=== PATIENT | female | born 1960 | race Two or more races ===

== ENCOUNTER → 2017-11-18 | Outpatient (CLI) | payer OTHER ==
[~2017-11-18] VITALS: Ht 152.4 cm; Wt 76.7 kg
[~2017-11-18] MED LIST: AMOX1TAB12 PO; ANTIVERT12.5 MG PO; BENADRYL25 MG PO; DERMOTIC20 ML OTIC; HYZAAR 50-12.51 EACH PO; HYZAAR 50/12.51 TAB; HYZAAR 50/12.51 TAB PO; MEDROL4 MG PO; OFLOXACIN5 ML OTIC; SWIM EAR DROPS30 ML OTIC; SYNTHROID100 MCG; SYNTHROID125 MCG; SYNTHROID88 MCG; TENORMIN25 MG; TENORMIN25 MG PO; TUSSI PRES-B L120 M1 PO; ULTRACET PO
== END | disposition home or self-care (01) ==
LOC: PPHC 13:13
DX: R19.7 Diarrhea, unspecified (principal)

== ENCOUNTER 2017-12-04 08:58 | Outpatient (CLI) | payer OTHER | END 2017-12-04 10:25 | disposition home or self-care (01) | LOC: LAB 08:58 | DX: D64.89 Other specified anemias (principal); E11.8 Type 2 diabetes mellitus with unspecified complications; E78.2 Mixed hyperlipidemia; I10 Essential (primary) hypertension; E03.8 Other specified hypothyroidism; E55.9 Vitamin D deficiency, unspecified; Z12.9 Encounter for screening for malignant neoplasm, site unspecified ==

== ENCOUNTER 2018-02-09 07:12 | Outpatient (CLI) | payer OTHER ==
[~2018-02-09] VITALS: Ht 152.4 cm; Wt 72.6 kg
== END 2018-02-09 07:30 | disposition home or self-care (01) ==
LOC: OFIC 805 07:12
DX: H61.21 Impacted cerumen, right ear (principal); J31.0 Chronic rhinitis; H60.61 Unspecified chronic otitis externa, right ear

== ENCOUNTER 2018-04-09 10:16 | Outpatient (CLI) | payer OTHER | END 2018-04-09 14:27 | disposition home or self-care (01) | LOC: LAB 10:16 | DX: C73 Malignant neoplasm of thyroid gland (principal); E89.0 Postprocedural hypothyroidism; E78.2 Mixed hyperlipidemia ==

== ENCOUNTER 2018-07-20 07:43 | Outpatient (CLI) | payer OTHER ==
[~2018-07-20] VITALS: Ht 152.4 cm; Wt 72.6 kg
== END 2018-07-20 08:00 | disposition home or self-care (01) ==
LOC: OFIC 805 07:43
DX: J31.0 Chronic rhinitis (principal); H60.8X3 Other otitis externa, bilateral; H61.23 Impacted cerumen, bilateral; L29.8 Other pruritus

== ENCOUNTER → 2018-09-01 06:07 | Outpatient (CLI) | payer OTHER | END | disposition home or self-care (01) | LOC: LAB 06:07 | DX: I10 Essential (primary) hypertension (principal); Z13.1 Encounter for screening for diabetes mellitus; Z12.11 Encounter for screening for malignant neoplasm of colon; E03.8 Other specified hypothyroidism ==

== ENCOUNTER 2018-09-01 10:56 | Outpatient (CLI) | payer OTHER | END 2018-09-01 11:01 | disposition home or self-care (01) | LOC: MAMO-SONO 10:56 | DX: Z12.31 Encounter for screening mammogram for malignant neoplasm of breast (principal) ==

== ENCOUNTER 2018-11-16 07:53 | Outpatient (CLI) | payer OTHER ==
[~2018-11-16] VITALS: Ht 152.4 cm; Wt 72.6 kg
== END 2018-11-16 08:15 | disposition home or self-care (01) ==
LOC: OFIC 805 07:53
DX: J31.0 Chronic rhinitis (principal); L29.8 Other pruritus; H60.8X2 Other otitis externa, left ear

== ENCOUNTER → 2019-01-28 08:42 | Outpatient (CLI) | payer OTHER | END | disposition home or self-care (01) | LOC: LAB 08:42 | DX: R42 Dizziness and giddiness (principal); E78.49 Other hyperlipidemia; Z00.00 Encounter for general adult medical examination without abnormal findings; Z11.3 Encounter for screening for infections with a predominantly sexual mode of transmission ==

== ENCOUNTER 2019-02-28 08:04 | Outpatient (CLI) | payer OTHER | END 2019-02-28 08:10 | disposition home or self-care (01) | LOC: SONOGRAMA 08:04 | DX: C73 Malignant neoplasm of thyroid gland (principal) ==

== ENCOUNTER 2019-03-31 16:50 | Outpatient (CLI) | payer OTHER | END 2019-03-31 17:00 | disposition home or self-care (01) | LOC: RAD 16:50 | DX: M54.89 Other dorsalgia (principal) ==

== ENCOUNTER → 2019-05-13 07:54 | Outpatient (CLI) | payer OTHER | END | disposition home or self-care (01) | LOC: LAB 07:54 | DX: D64.89 Other specified anemias (principal); E11.9 Type 2 diabetes mellitus without complications; E78.2 Mixed hyperlipidemia; I10 Essential (primary) hypertension; E03.8 Other specified hypothyroidism ==

== ENCOUNTER 2019-09-06 08:02 | Outpatient (CLI) | payer OTHER ==
[~2019-09-06] VITALS: Ht 152.4 cm; Wt 70.3 kg
[~2019-09-06 08:02] MED LIST changes: +ATENOLOL25 MG; +ATENOLOL25 MG PO; +CORTISPORIN EAR10 M2 OT; +SYNTHROID88 MCG PO
[2019-09-06] MEDS ORDERED: LIPO-FLAVONOID1 EACH PO (12:10)
== END 2019-09-06 08:20 | disposition home or self-care (01) ==
LOC: OFIC 805 08:02 → EDBD 10:00
DX: H60.63 Unspecified chronic otitis externa, bilateral (principal); J31.0 Chronic rhinitis; R42 Dizziness and giddiness

== ENCOUNTER 2019-09-27 09:03 | Outpatient (CLI) | payer OTHER ==
[~2019-09-27 09:03] MED LIST changes: +LIPO-FLAVONOID1 EACH PO
== END 2019-09-27 10:29 | disposition home or self-care (01) ==
LOC: MAMO-SONO 09:03
DX: Z12.31 Encounter for screening mammogram for malignant neoplasm of breast (principal); Z87.898 Personal history of other specified conditions; N64.4 Mastodynia

== ENCOUNTER 2019-09-29 07:37 | Outpatient (CLI) | payer OTHER | END 2019-09-29 15:00 | disposition home or self-care (01) | LOC: LAB 07:37 | DX: D64.89 Other specified anemias (principal); E11.9 Type 2 diabetes mellitus without complications; E78.2 Mixed hyperlipidemia; I10 Essential (primary) hypertension; E03.8 Other specified hypothyroidism ==

== ENCOUNTER 2019-12-05 11:47 | Outpatient (CLI) | payer OTHER ==
[~2019-12-05] VITALS: Ht 152.4 cm; Wt 68.9 kg
== END 2019-12-05 14:55 | disposition home or self-care (01) ==
LOC: OFIC 805 11:47
DX: H92.01 Otalgia, right ear (principal); S00.421A Blister (nonthermal) of right ear, initial encounter

== ENCOUNTER 2019-12-16 08:48 | Emergency (ER) | payer OTHER ==
[~2019-12-16] VITALS: Ht 162.6 cm; Wt 76.2 kg
== END 2019-12-16 10:14 | disposition home or self-care (01) ==
LOC: ER 08:48
DX: R05 Cough (principal)

== ENCOUNTER 2020-01-18 06:17 | Outpatient (CLI) | payer OTHER | END 2020-01-18 06:23 | disposition home or self-care (01) | LOC: LAB 06:17 | DX: E11.9 Type 2 diabetes mellitus without complications (principal); I10 Essential (primary) hypertension; E07.89 Other specified disorders of thyroid ==

== ENCOUNTER 2020-02-03 10:25 | Outpatient (CLI) | payer OTHER | END 2020-02-03 10:37 | disposition home or self-care (01) | LOC: LAB 10:25 | DX: M54.2 Cervicalgia (principal); E78.49 Other hyperlipidemia; E03.8 Other specified hypothyroidism; E55.9 Vitamin D deficiency, unspecified ==

== ENCOUNTER → 2020-03-29 07:23 | Outpatient (CLI) | payer OTHER ==
[~2020-03-29 07:23] MED LIST changes: +CORTISPORIN EAR10 M1 OPHT
== END | disposition home or self-care (01) ==
LOC: LAB 07:23
PROVIDERS: ATTEND Internal Medicine Sports Medicine
DX: E55.9 Vitamin D deficiency, unspecified (principal); E78.2 Mixed hyperlipidemia; E11.9 Type 2 diabetes mellitus without complications; D64.89 Other specified anemias; I10 Essential (primary) hypertension; E03.8 Other specified hypothyroidism

== ENCOUNTER 2020-04-09 10:26 | Outpatient (CLI) | payer OTHER ==
[~2020-04-09] VITALS: Ht 152.4 cm; Wt 70.3 kg
[~2020-04-09 10:26] MED LIST changes: -CORTISPORIN EAR10 M1 OPHT
[2020-04-09] MEDS ORDERED: CORTISPORIN EAR10 M1 OPHT (10:42)
== END 2020-04-09 10:59 | disposition home or self-care (01) ==
LOC: OFIC 805 10:26
PROVIDERS: ATTEND Otolaryngology
DX: H60.8X1 Other otitis externa, right ear (principal); H61.21 Impacted cerumen, right ear

== ENCOUNTER 2020-05-01 08:53 | Outpatient (CLI) | payer OTHER ==
[~2020-05-01 08:53] MED LIST changes: +CORTISPORIN EAR10 M1 OPHT
== END 2020-05-01 08:55 | disposition home or self-care (01) ==
LOC: SONOGRAMA 08:53
PROVIDERS: ATTEND Obstetrics & Gynecology Gynecology
DX: R10.2 Pelvic and perineal pain (principal)

== ENCOUNTER 2020-07-04 09:11 | Outpatient (CLI) | payer OTHER | END 2020-07-04 18:27 | disposition home or self-care (01) | LOC: OFIC 805 09:11 | PROVIDERS: ATTEND Otolaryngology | DX: H92.01 Otalgia, right ear (principal); H60.8X1 Other otitis externa, right ear ==

== ENCOUNTER 2020-07-11 06:07 | Emergency (ER) | payer OTHER ==
[~2020-07-11] VITALS: Ht 162.6 cm; Wt 71.2 kg
[2020-07-11] MEDS ORDERED: PROTONIX40 MG (06:23)
[2020-07-11] MEDS ORDERED: DIURETICO (06:24)
== END 2020-07-11 13:31 | disposition home or self-care (01) ==
LOC: ER 06:07
DX: R10.32 Left lower quadrant pain (principal); K62.5 Hemorrhage of anus and rectum

== ENCOUNTER 2020-07-19 13:00 | Outpatient (CLI) | payer OTHER ==
[~2020-07-19 13:00] MED LIST changes: +DIURETICO; +PROTONIX40 MG
== END 2020-07-19 15:00 | disposition home or self-care (01) ==
LOC: PPH VACUNA 13:00
DX: Z23 Encounter for immunization (principal)

== ENCOUNTER → 2020-08-20 06:25 | Outpatient (CLI) | payer OTHER | END | disposition home or self-care (01) | LOC: LAB 06:25 | PROVIDERS: ATTEND Internal Medicine Cardiovascular Disease | DX: M12.871 Other specific arthropathies, not elsewhere classified, right ankle and foot (principal); I10 Essential (primary) hypertension; E11.9 Type 2 diabetes mellitus without complications; E03.8 Other specified hypothyroidism; E78.2 Mixed hyperlipidemia; E55.9 Vitamin D deficiency, unspecified ==

== ENCOUNTER 2020-08-22 07:57 | Outpatient (CLI) | payer OTHER | END 2020-08-22 08:09 | disposition home or self-care (01) | LOC: NUCLEAR 07:57 | PROVIDERS: ATTEND Internal Medicine Cardiovascular Disease | DX: M81.0 Age-related osteoporosis without current pathological fracture (principal) ==

== ENCOUNTER → 2020-09-14 07:19 | Outpatient (CLI) | payer OTHER | END | disposition home or self-care (01) | LOC: LAB 07:19 | PROVIDERS: ATTEND Internal Medicine Sports Medicine | DX: D64.89 Other specified anemias (principal); E11.9 Type 2 diabetes mellitus without complications; E78.2 Mixed hyperlipidemia; E03.8 Other specified hypothyroidism; I10 Essential (primary) hypertension ==

== ENCOUNTER → 2020-10-10 | Outpatient (CLI) | payer OTHER | END | disposition home or self-care (01) | LOC: OFIC 805 08:45 | PROVIDERS: ATTEND Otolaryngology | DX: L30.8 Other specified dermatitis (principal); L29.8 Other pruritus ==

== ENCOUNTER 2020-10-15 10:17 | Outpatient (CLI) | payer OTHER | END 2020-10-15 11:00 | disposition home or self-care (01) | LOC: MAMO-SONO 10:17 | PROVIDERS: ATTEND Obstetrics & Gynecology Gynecology | DX: N60.02 Solitary cyst of left breast (principal); N60.11 Diffuse cystic mastopathy of right breast; N60.12 Diffuse cystic mastopathy of left breast ==

== ENCOUNTER → 2021-01-02 06:36 | Outpatient (CLI) | payer OTHER | END | disposition home or self-care (01) | LOC: LAB 06:36 | PROVIDERS: ATTEND Internal Medicine Sports Medicine | DX: D64.89 Other specified anemias (principal); E11.9 Type 2 diabetes mellitus without complications; E78.2 Mixed hyperlipidemia; I10 Essential (primary) hypertension; E03.8 Other specified hypothyroidism ==

== ENCOUNTER 2021-02-08 07:18 | Outpatient (CLI) | payer OTHER | END 2021-02-08 07:19 | disposition home or self-care (01) | LOC: EDBD 07:18 → LAB 07:18 | PROVIDERS: ATTEND Internal Medicine Sports Medicine | DX: C73 Malignant neoplasm of thyroid gland (principal); E89.0 Postprocedural hypothyroidism ==

== ENCOUNTER 2021-02-26 07:38 | Outpatient (CLI) | payer OTHER | END 2021-02-26 07:45 | disposition home or self-care (01) | LOC: SONOGRAMA 07:38 → EDBD 07:38 → SONOGRAMA 07:45 → MAMO-SONO 08:45 → EDBD 08:45 | PROVIDERS: ATTEND Internal Medicine Sports Medicine | DX: C73 Malignant neoplasm of thyroid gland (principal) ==

== ENCOUNTER → 2021-05-10 07:33 | Outpatient (CLI) | payer OTHER | END | disposition home or self-care (01) | LOC: LAB 07:33 | PROVIDERS: ATTEND Obstetrics & Gynecology Gynecology | DX: I10 Essential (primary) hypertension (principal); E78.49 Other hyperlipidemia; E03.8 Other specified hypothyroidism; M81.0 Age-related osteoporosis without current pathological fracture; N39.0 Urinary tract infection, site not specified ==

== ENCOUNTER → 2021-05-30 | Outpatient (CLI) | payer OTHER | END | disposition home or self-care (01) | LOC: LAB 07:16 | PROVIDERS: ATTEND Pediatrics | DX: Z03.818 Encounter for observation for suspected exposure to other biological agents ruled out (principal) ==

== ENCOUNTER 2021-06-25 13:20 | Outpatient (CLI) | payer OTHER | END 2021-06-25 13:25 | disposition home or self-care (01) | LOC: SONOGRAMA 13:20 | PROVIDERS: ATTEND Obstetrics & Gynecology Gynecology | DX: R10.2 Pelvic and perineal pain (principal) ==

== ENCOUNTER 2021-07-05 07:47 | Outpatient (CLI) | payer OTHER | END 2021-07-05 07:50 | disposition home or self-care (01) | LOC: LAB 07:47 | PROVIDERS: ATTEND Obstetrics & Gynecology Gynecology | DX: N39.0 Urinary tract infection, site not specified (principal); N91.5 Oligomenorrhea, unspecified ==

== ENCOUNTER 2021-07-12 06:13 | Outpatient (CLI) | payer OTHER | END 2021-07-12 06:14 | disposition home or self-care (01) | LOC: LAB 06:13 | PROVIDERS: ATTEND Internal Medicine Sports Medicine | DX: E89.0 Postprocedural hypothyroidism (principal); C73 Malignant neoplasm of thyroid gland ==

== ENCOUNTER 2021-08-05 08:00 | Outpatient (CLI) | payer OTHER | END 2021-08-05 08:30 | disposition home or self-care (01) | LOC: PPH VACUNA 08:00 | PROVIDERS: ATTEND Emergency Medicine Pediatric Emergency Medicine | DX: Z23 Encounter for immunization (principal) ==

== ENCOUNTER 2021-08-26 06:12 | Outpatient (CLI) | payer OTHER | END 2021-08-26 06:13 | disposition home or self-care (01) | LOC: LAB 06:12 | PROVIDERS: ATTEND Internal Medicine Cardiovascular Disease | DX: I10 Essential (primary) hypertension (principal); E11.9 Type 2 diabetes mellitus without complications; E03.8 Other specified hypothyroidism; E78.2 Mixed hyperlipidemia; E55.9 Vitamin D deficiency, unspecified ==

== ENCOUNTER 2021-10-09 08:00 | Outpatient (CLI) | payer OTHER | END 2021-10-09 08:30 | disposition home or self-care (01) | LOC: PPH VACUNA 08:00 | PROVIDERS: ATTEND Emergency Medicine Pediatric Emergency Medicine | DX: Z23 Encounter for immunization (principal) ==

== ENCOUNTER 2021-10-29 13:15 | Outpatient (CLI) | payer OTHER | END 2021-10-29 13:36 | disposition home or self-care (01) | LOC: MAMO-SONO 13:15 | DX: N63.21 Unspecified lump in the left breast, upper outer quadrant (principal); N63.12 Unspecified lump in the right breast, upper inner quadrant ==

== ENCOUNTER 2021-11-08 07:32 | Outpatient (CLI) | payer OTHER | END 2021-11-08 07:39 | disposition home or self-care (01) | LOC: LAB 07:32 → EDSTATUS 07:32 → LAB 07:39 | PROVIDERS: ATTEND Internal Medicine Sports Medicine | DX: C73 Malignant neoplasm of thyroid gland (principal); E89.0 Postprocedural hypothyroidism ==

== ENCOUNTER 2022-01-10 06:39 | Outpatient (CLI) | payer OTHER | END 2022-01-10 06:40 | disposition home or self-care (01) | LOC: LAB 06:39 | PROVIDERS: ATTEND Internal Medicine Cardiovascular Disease | DX: E03.9 Hypothyroidism, unspecified (principal); I10 Essential (primary) hypertension; E11.9 Type 2 diabetes mellitus without complications; E78.2 Mixed hyperlipidemia; E58 Dietary calcium deficiency ==

== ENCOUNTER 2022-01-12 08:08 | Outpatient (CLI) | payer OTHER | END 2022-01-12 08:13 | disposition home or self-care (01) | LOC: NUCLEAR 08:08 | PROVIDERS: ATTEND Internal Medicine | DX: R07.9 Chest pain, unspecified (principal) ==

== ENCOUNTER 2022-01-16 05:32 | Emergency (ER) | payer OTHER ==
[~2022-01-16] VITALS: Ht 162.6 cm; Wt 73.5 kg
[2022-01-16] MEDS ORDERED: CIPRO500 MG PO (11:59)
== END 2022-01-16 12:33 | disposition home or self-care (01) ==
LOC: ER 05:32
DX: N39.0 Urinary tract infection, site not specified (principal)

== ENCOUNTER 2022-01-23 07:09 | Outpatient (CLI) | payer OTHER ==
[~2022-01-23 07:09] MED LIST changes: +CIPRO500 MG PO
== END 2022-01-23 07:10 | disposition home or self-care (01) ==
LOC: LAB 07:09
PROVIDERS: ATTEND Internal Medicine
DX: D64.9 Anemia, unspecified (principal); N39.0 Urinary tract infection, site not specified; R10.9 Unspecified abdominal pain; E03.9 Hypothyroidism, unspecified; E78.5 Hyperlipidemia, unspecified; R73.09 Other abnormal glucose; I10 Essential (primary) hypertension

== ENCOUNTER 2022-01-27 06:08 | Outpatient (CLI) | payer OTHER | END 2022-01-27 06:09 | disposition home or self-care (01) | LOC: LAB 06:08 | PROVIDERS: ATTEND Internal Medicine | DX: R10.9 Unspecified abdominal pain (principal) ==

== ENCOUNTER → 2022-02-18 | Outpatient (CLI) | payer OTHER | END | disposition home or self-care (01) | LOC: SONOGRAMA 07:55 | PROVIDERS: ATTEND Internal Medicine Sports Medicine | DX: C73 Malignant neoplasm of thyroid gland (principal) ==

== ENCOUNTER 2022-04-11 07:13 | Outpatient (CLI) | payer OTHER | END 2022-04-11 07:18 | disposition home or self-care (01) | LOC: LAB 07:13 | PROVIDERS: ATTEND Internal Medicine Cardiovascular Disease | DX: E03.9 Hypothyroidism, unspecified (principal); I10 Essential (primary) hypertension; E11.9 Type 2 diabetes mellitus without complications; E78.2 Mixed hyperlipidemia ==

== ENCOUNTER 2022-04-18 10:44 | Outpatient (CLI) | payer OTHER | END 2022-04-18 10:45 | disposition home or self-care (01) | LOC: LAB 10:44 | PROVIDERS: ATTEND Specialist | DX: Z03.818 Encounter for observation for suspected exposure to other biological agents ruled out (principal) ==

== ENCOUNTER 2022-05-16 07:10 | Outpatient (CLI) | payer OTHER | END 2022-05-16 07:59 | disposition home or self-care (01) | LOC: LAB 07:10 | PROVIDERS: ATTEND Internal Medicine Cardiovascular Disease | DX: I10 Essential (primary) hypertension (principal); E11.9 Type 2 diabetes mellitus without complications; E03.9 Hypothyroidism, unspecified; E78.2 Mixed hyperlipidemia; E55.9 Vitamin D deficiency, unspecified ==

== ENCOUNTER 2022-07-15 14:00 | Outpatient (CLI) | payer OTHER | END 2022-07-15 14:05 | disposition home or self-care (01) | LOC: PPH VACUNA 14:00 | PROVIDERS: ATTEND Emergency Medicine Pediatric Emergency Medicine | DX: Z23 Encounter for immunization (principal) ==

== ENCOUNTER 2022-08-08 07:11 | Outpatient (CLI) | payer OTHER | END 2022-08-08 07:12 | disposition home or self-care (01) | LOC: LAB 07:11 | PROVIDERS: ATTEND Internal Medicine Sports Medicine | DX: D64.9 Anemia, unspecified (principal); E11.9 Type 2 diabetes mellitus without complications; E78.2 Mixed hyperlipidemia; E03.8 Other specified hypothyroidism; I10 Essential (primary) hypertension ==

== ENCOUNTER 2022-09-28 10:05 | Outpatient (CLI) | payer OTHER | END 2022-09-28 10:06 | disposition home or self-care (01) | LOC: LAB 10:05 | PROVIDERS: ATTEND Internal Medicine Cardiovascular Disease | DX: I10 Essential (primary) hypertension (principal); E11.9 Type 2 diabetes mellitus without complications; E03.9 Hypothyroidism, unspecified; E78.2 Mixed hyperlipidemia ==

== ENCOUNTER 2022-10-24 07:09 | Outpatient (CLI) | payer OTHER | END 2022-10-24 07:13 | disposition home or self-care (01) | LOC: LAB 07:09 | PROVIDERS: ATTEND Specialist | DX: N39.0 Urinary tract infection, site not specified (principal); R22.1 Localized swelling, mass and lump, neck; D50.9 Iron deficiency anemia, unspecified; E03.9 Hypothyroidism, unspecified ==

== ENCOUNTER 2022-10-30 08:24 | Outpatient (CLI) | payer OTHER | END 2022-10-30 08:35 | disposition home or self-care (01) | LOC: MAMO-SONO 08:24 | PROVIDERS: ATTEND Internal Medicine Cardiovascular Disease | DX: N63.11 Unspecified lump in the right breast, upper outer quadrant (principal) ==

== ENCOUNTER 2023-01-20 06:52 | Outpatient (CLI) | payer OTHER ==
[~2023-01-20 06:52] MED LIST changes: +NORFLEX100MG PO
== END 2023-01-20 06:53 | disposition home or self-care (01) ==
LOC: LAB 06:52
PROVIDERS: ATTEND Internal Medicine
DX: D64.9 Anemia, unspecified (principal); N39.0 Urinary tract infection, site not specified; R10.9 Unspecified abdominal pain; E78.5 Hyperlipidemia, unspecified; E55.9 Vitamin D deficiency, unspecified; E11.9 Type 2 diabetes mellitus without complications

== ENCOUNTER 2023-01-23 09:19 | Outpatient (CLI) | payer OTHER | END 2023-01-23 09:33 | disposition home or self-care (01) | LOC: RAD 09:19 | PROVIDERS: ATTEND Physical Medicine & Rehabilitation | DX: M54.2 Cervicalgia (principal); M75.81 Other shoulder lesions, right shoulder; M75.82 Other shoulder lesions, left shoulder ==

== ENCOUNTER 2023-02-08 06:25 | Outpatient (CLI) | payer OTHER | END 2023-02-08 06:29 | disposition home or self-care (01) | LOC: LAB 06:25 | PROVIDERS: ATTEND Internal Medicine Sports Medicine | DX: D64.9 Anemia, unspecified (principal); E11.9 Type 2 diabetes mellitus without complications; E78.2 Mixed hyperlipidemia; I10 Essential (primary) hypertension; E03.8 Other specified hypothyroidism ==

== ENCOUNTER 2023-02-08 07:38 | Outpatient (CLI) | payer OTHER | END 2023-02-08 07:39 | disposition home or self-care (01) | LOC: SONOGRAMA 07:38 | PROVIDERS: ATTEND Internal Medicine Sports Medicine | DX: Z08 Encounter for follow-up examination after completed treatment for malignant neoplasm (principal); Z85.850 Personal history of malignant neoplasm of thyroid; E89.0 Postprocedural hypothyroidism ==

== ENCOUNTER → 2023-02-10 13:29 | Outpatient (CLI) | payer OTHER | END | disposition home or self-care (01) | LOC: LAB 13:29 | PROVIDERS: ATTEND Internal Medicine Sports Medicine | DX: N30.00 Acute cystitis without hematuria (principal) ==

== ENCOUNTER → 2023-02-27 15:13 | Outpatient (CLI) | payer OTHER | END | disposition home or self-care (01) | LOC: LAB 14:57 | PROVIDERS: ATTEND Internal Medicine Cardiovascular Disease | DX: E03.9 Hypothyroidism, unspecified (principal); I10 Essential (primary) hypertension; E11.9 Type 2 diabetes mellitus without complications; E78.2 Mixed hyperlipidemia; E55.9 Vitamin D deficiency, unspecified ==

== ENCOUNTER 2023-03-24 09:01 | Outpatient (CLI) | payer OTHER | END 2023-03-24 09:07 | disposition home or self-care (01) | LOC: SONOGRAMA 09:01 | PROVIDERS: ATTEND General Practice | DX: N95.0 Postmenopausal bleeding (principal) ==

== ENCOUNTER 2023-07-20 06:32 | Outpatient (CLI) | payer OTHER | END 2023-07-20 06:34 | disposition home or self-care (01) | LOC: LAB 06:32 | PROVIDERS: ATTEND Internal Medicine Cardiovascular Disease | DX: E03.9 Hypothyroidism, unspecified (principal); E11.9 Type 2 diabetes mellitus without complications; I10 Essential (primary) hypertension; E78.2 Mixed hyperlipidemia ==

== ENCOUNTER 2023-07-23 14:02 | Outpatient (CLI) | payer OTHER | END 2023-07-23 14:12 | disposition home or self-care (01) | LOC: PPH VACUNA 14:02 | PROVIDERS: ATTEND Emergency Medicine Pediatric Emergency Medicine | DX: Z23 Encounter for immunization (principal) | CPT/HCPCS: 90686; G0008 ==

== ENCOUNTER 2023-08-05 07:49 | Outpatient (CLI) | payer OTHER | END 2023-08-05 07:52 | disposition home or self-care (01) | LOC: NUCLEAR 07:49 | PROVIDERS: ATTEND Internal Medicine Cardiovascular Disease | DX: I87.2 Venous insufficiency (chronic) (peripheral) (principal) ==

== ENCOUNTER 2023-09-01 08:33 | Outpatient (CLI) | payer OTHER ==
[2023-09-01] MEDS ORDERED: NORFLEX100MG PO (14:15)
== END 2023-09-01 08:34 | disposition home or self-care (01) ==
LOC: NUCLEAR 08:33
PROVIDERS: ATTEND Internal Medicine
DX: R07.9 Chest pain, unspecified (principal)

== ENCOUNTER 2023-09-03 09:37 | Outpatient (CLI) | payer OTHER | END 2023-09-03 09:42 | disposition home or self-care (01) | LOC: RAD 09:37 | PROVIDERS: ATTEND Internal Medicine Cardiovascular Disease | DX: M19.90 Unspecified osteoarthritis, unspecified site (principal) ==

== ENCOUNTER 2023-11-11 08:23 | Outpatient (CLI) | payer OTHER | END 2023-11-11 08:32 | disposition home or self-care (01) | LOC: MAMO-SONO 08:23 | PROVIDERS: ATTEND Internal Medicine Cardiovascular Disease | DX: M12.9 Arthropathy, unspecified (principal); M46.43 Discitis, unspecified, cervicothoracic region ==

== ENCOUNTER → 2023-11-27 06:36 | Outpatient (CLI) | payer OTHER ==
[2023-11-27 07:29] LABS: PH,URINE 5.5 (5.0-8.0); URINE APPEARANCE Clear; URINE BILIRRUBIN Negative (NEGATIVE); URINE COLOR Yellow; URINE GLUCOSE Negative (NEGATIVE); URINE LEUKOCYTE Trace; URINE NITRATE Negative; URINE PROTEIN Negative (NEGATIVE); URINE UROBILINOGEN 0.2 E.U./dl
[2023-11-27 07:33] LABS: URINE BACTERIA 16.3 uL (0.0-1933); URINE EPITHELIAL CELLS 4.1 uL (0.0-38.8); URINE RBC 8.1 uL (0.0-20.8); URINE WBC 8.1 uL (0.0-23.2)
[2023-11-27 07:38] LABS: HEMATOCRIT 40.9 % (36.0-45.00); HEMOGLOBIN 14.1 g/dL (12.0-15.00); MEAN CELL VOLUME 87.2 fL (80.00-100.00); MEAN CORPUSCULAR HGB CONC 34.3 g/dl (32.0-36.0); PLATELET COUNT 137 K/uL (150-450); RED BLOOD COUNT 4.69 M/uL (4.00-6.00); RED CELL DISTRIBUTION WIDTH 13.5 % (11.5-14.5)
[2023-11-27 07:41] LABS: URINE BLOOD TRACE
[2023-11-27 08:35] LABS: ALBUMIN 3.8 gm/dL (3.4-5.0); BILIRUBIN TOTAL 0.62 mg/dL (0.3-1.2); CHOL HDL RATIO 3.1 (0-5.0); CREATININE SERUM 0.87 mg/dL (0.55-1.02); GFR 65.97; GLOBULINA 3.5 G/DL (2.4-3.5); POTASSIUM 4.12 mEq/L (3.5-5.1); T4 TOTAL 9.51 UG/DL (4.8-13.9); TOTAL PROTEIN 7.3 gm/dL (6.4-8.2)
[2023-11-27 08:41] LABS: TSH 0.338 uIU/mL (0.358-3.74)
[2023-11-28 14:57] LABS: T3 TOTAL 0.942 ng/ml (0.846-2.02); VITAMIN D3 25 HYDROXY 28.16 ng/ml (30-120)
== END | disposition home or self-care (01) ==
LOC: LAB 06:36
PROVIDERS: ATTEND Internal Medicine Cardiovascular Disease
DX: I10 Essential (primary) hypertension (principal); E11.9 Type 2 diabetes mellitus without complications; E03.9 Hypothyroidism, unspecified; E78.2 Mixed hyperlipidemia; E55.9 Vitamin D deficiency, unspecified

== ENCOUNTER 2023-12-24 07:46 | Outpatient (CLI) | payer OTHER ==
[2023-12-24 08:35] LABS: URINE APPEARANCE Clear; URINE BILIRRUBIN Negative (NEGATIVE); URINE BLOOD Trace; URINE COLOR Yellow; URINE GLUCOSE Negative (NEGATIVE); URINE LEUKOCYTE Small; URINE NITRATE Negative; URINE PROTEIN Negative (NEGATIVE); URINE UROBILINOGEN 0.2 E.U./dl
[2023-12-24 08:39] LABS: URINE BACTERIA 54.1 uL (0.0-1933); URINE EPITHELIAL CELLS 6.9 uL (0.0-38.8); URINE RBC 9.4 uL (0.0-20.8); URINE WBC 15.9 uL (0.0-23.2)
[2023-12-24 08:39] LABS: HEMATOCRIT 41.5 % (36.0-45.00); HEMOGLOBIN 14.3 g/dL (12.0-15.00); MEAN CELL VOLUME 85.3 fL (80.00-100.00); MEAN CORPUSCULAR HEMOGLOBIN 29.3 pg (27.00-32.0); MEAN CORPUSCULAR HGB CONC 34.4 g/dl (32.0-36.0); PLATELET COUNT 149 K/uL (150-450); RED BLOOD COUNT 4.86 M/uL (4.00-6.00); RED CELL DISTRIBUTION WIDTH 13.5 % (11.5-14.5)
[2023-12-24 09:19] LABS: BILIRUBIN TOTAL 0.6 mg/dL (0.3-1.2); CALCIUM 9.2 mg/dL (8.5-10.1); CHOL HDL RATIO 3.5 (0-5.0); CREATININE SERUM 0.84 mg/dL (0.55-1.02); GFR 68.7; GLOBULINA 3.4 G/DL (2.4-3.5); POTASSIUM 4.14 mEq/L (3.5-5.1); T4 TOTAL 9.79 UG/DL (4.8-13.9); TOTAL PROTEIN 7.4 gm/dL (6.4-8.2)
[2023-12-24 09:25] LABS: TSH 0.341 uIU/mL (0.358-3.74)
== END 2023-12-24 13:55 | disposition home or self-care (01) ==
LOC: LAB 07:46
PROVIDERS: ATTEND Internal Medicine Cardiovascular Disease
DX: E11.9 Type 2 diabetes mellitus without complications (principal); E03.9 Hypothyroidism, unspecified; E78.2 Mixed hyperlipidemia; E55.9 Vitamin D deficiency, unspecified; I10 Essential (primary) hypertension

== ENCOUNTER 2024-01-20 16:35 | Outpatient (CLI) | payer OTHER ==
[2024-01-20 06:34] LABS: PH,URINE 5.5 (5.0-8.0); URINE APPEARANCE Clear; URINE BILIRRUBIN Negative (NEGATIVE); URINE BLOOD Negative; URINE COLOR Yellow; URINE GLUCOSE Negative (NEGATIVE); URINE LEUKOCYTE Moderate; URINE NITRATE Negative; URINE PROTEIN Negative (NEGATIVE); URINE UROBILINOGEN 0.2 E.U./dl
[2024-01-20 06:38] LABS: URINE BACTERIA 64.2 uL (0.0-1933); URINE EPITHELIAL CELLS 19.9 uL (0.0-38.8); URINE RBC 5.4 uL (0.0-20.8); URINE WBC 84.2 uL (0.0-23.2)
[2024-01-20 07:34] LABS: HEMATOCRIT 41.6 % (36.0-45.00); HEMOGLOBIN 14.2 g/dL (12.0-15.00); MEAN CELL VOLUME 86.2 fL (80.00-100.00); MEAN CORPUSCULAR HEMOGLOBIN 29.3 pg (27.00-32.0); PLATELET COUNT 146 K/uL (150-450); RED BLOOD COUNT 4.83 M/uL (4.00-6.00); RED CELL DISTRIBUTION WIDTH 13.6 % (11.5-14.5)
[2024-01-20 08:17] LABS: ALBUMIN 3.8 gm/dL (3.4-5.0); BILIRUBIN TOTAL 0.61 mg/dL (0.3-1.2); CALCIUM 8.8 mg/dL (8.5-10.1); CHOL HDL RATIO 3.4 (0-5.0); CREATININE SERUM 0.92 mg/dL (0.55-1.02); GFR 61.85; GLOBULINA 3.7 G/DL (2.4-3.5); POTASSIUM 4.16 mEq/L (3.5-5.1); TOTAL PROTEIN 7.5 gm/dL (6.4-8.2); TSH 0.556 uIU/mL (0.358-3.74)
== END 2024-01-20 23:00 | disposition home or self-care (01) ==
LOC: LAB 16:35
PROVIDERS: ATTEND Internal Medicine
DX: D64.9 Anemia, unspecified (principal); N39.0 Urinary tract infection, site not specified; R10.9 Unspecified abdominal pain; E03.9 Hypothyroidism, unspecified; E78.5 Hyperlipidemia, unspecified; E55.9 Vitamin D deficiency, unspecified; R73.09 Other abnormal glucose; I10 Essential (primary) hypertension

== ENCOUNTER → 2024-01-31 06:52 | Outpatient (CLI) | payer OTHER ==
[2024-01-31 08:35] LABS: HEMATOCRIT 42.9 % (36.0-45.00); HEMOGLOBIN 14.6 g/dL (12.0-15.00); MEAN CELL VOLUME 85.7 fL (80.00-100.00); MEAN CORPUSCULAR HEMOGLOBIN 29.1 pg (27.00-32.0); PLATELET COUNT 156 K/uL (150-450); RED CELL DISTRIBUTION WIDTH 13.6 % (11.5-14.5)
[2024-01-31 08:42] LABS: URINE APPEARANCE Clear; URINE BILIRRUBIN Negative (NEGATIVE); URINE BLOOD Negative; URINE COLOR Yellow; URINE GLUCOSE Negative (NEGATIVE); URINE LEUKOCYTE Moderate; URINE NITRATE Negative; URINE PROTEIN Negative (NEGATIVE); URINE UROBILINOGEN 0.2 E.U./dl
[2024-01-31 08:46] LABS: URINE BACTERIA 54.1 uL (0.0-1933); URINE EPITHELIAL CELLS 5.3 uL (0.0-38.8); URINE RBC 4.8 uL (0.0-20.8); URINE WBC 16.1 uL (0.0-23.2)
[2024-01-31 09:27] LABS: ALBUMIN 3.9 gm/dL (3.4-5.0); BILIRUBIN TOTAL 0.52 mg/dL (0.3-1.2); CALCIUM 9.5 mg/dL (8.5-10.1); CHOL HDL RATIO 3.7 (0-5.0); CREATININE SERUM 0.98 mg/dL (0.55-1.02); GFR 57.5; GLOBULINA 3.8 G/DL (2.4-3.5); POTASSIUM 4.4 mEq/L (3.5-5.1); T4 FREE 1.21 NG/ML (0.76-1.46); TOTAL PROTEIN 7.7 gm/dL (6.4-8.2)
[2024-01-31 09:34] LABS: TSH 0.338 uIU/mL (0.358-3.74)
== END | disposition home or self-care (01) ==
LOC: LAB 06:52
PROVIDERS: ATTEND Internal Medicine Sports Medicine
DX: D64.9 Anemia, unspecified (principal); E11.9 Type 2 diabetes mellitus without complications; E78.2 Mixed hyperlipidemia; E03.8 Other specified hypothyroidism; I10 Essential (primary) hypertension

== ENCOUNTER 2024-05-08 06:18 | Outpatient (CLI) | payer OTHER ==
[2024-05-08 07:12] LABS: URINE APPEARANCE Clear; URINE BILIRRUBIN Negative (NEGATIVE); URINE BLOOD Moderate; URINE COLOR Dark Yellow; URINE GLUCOSE Negative (NEGATIVE); URINE LEUKOCYTE Moderate; URINE NITRATE Negative; URINE PROTEIN Trace (NEGATIVE); URINE UROBILINOGEN 0.2 E.U./dl
[2024-05-08 07:15] LABS: URINE BACTERIA 200.3 uL (0.0-1933); URINE EPITHELIAL CELLS 63.3 uL (0.0-38.8); URINE RBC 125.3 uL (0.0-20.8); URINE WBC 184.1 uL (0.0-23.2)
[2024-05-08 07:18] LABS: HEMATOCRIT 42.3 % (36.0-45.00); HEMOGLOBIN 14.8 g/dL (12.0-15.00); MEAN CELL VOLUME 85.2 fL (80.00-100.00); MEAN CORPUSCULAR HEMOGLOBIN 29.8 pg (27.00-32.0); MEAN CORPUSCULAR HGB CONC 34.9 g/dl (32.0-36.0); PLATELET COUNT 149 K/uL (150-450); RED BLOOD COUNT 4.96 M/uL (4.00-6.00); RED CELL DISTRIBUTION WIDTH 13.5 % (11.5-14.5)
[2024-05-08 07:47] LABS: ALBUMIN 4.1 gm/dL (3.4-5.0); BILIRUBIN TOTAL 0.67 mg/dL (0.3-1.2); CALCIUM 9.6 mg/dL (8.5-10.1); CHOL HDL RATIO 3.7 (0-5.0); CREATININE SERUM 0.94 mg/dL (0.55-1.02); GFR 60.14; GLOBULINA 3.8 G/DL (2.4-3.5); POTASSIUM 4.12 mEq/L (3.5-5.1); TOTAL PROTEIN 7.9 gm/dL (6.4-8.2); TSH 0.699 uIU/mL (0.358-3.74)
[2024-05-08 08:58] LABS: ob NEGATIVE (NEGATIVE)
== END 2024-05-08 06:23 | disposition home or self-care (01) ==
LOC: LAB 06:18
PROVIDERS: ATTEND Obstetrics & Gynecology Gynecology
DX: E11.9 Type 2 diabetes mellitus without complications (principal); N39.0 Urinary tract infection, site not specified; E03.9 Hypothyroidism, unspecified; Z12.11 Encounter for screening for malignant neoplasm of colon; E55.9 Vitamin D deficiency, unspecified; E78.00 Pure hypercholesterolemia, unspecified; I10 Essential (primary) hypertension

== ENCOUNTER 2024-05-30 08:36 | Outpatient (CLI) | payer OTHER ==
[2024-05-30 11:19] LABS: HEMATOCRIT 42.3 % (36.0-45.00); HEMOGLOBIN 14.5 g/dL (12.0-15.00); MEAN CELL VOLUME 86.6 fL (80.00-100.00); MEAN CORPUSCULAR HEMOGLOBIN 29.7 pg (27.00-32.0); MEAN CORPUSCULAR HGB CONC 34.3 g/dl (32.0-36.0); PLATELET COUNT 151 K/uL (150-450); RED BLOOD COUNT 4.88 M/uL (4.00-6.00); RED CELL DISTRIBUTION WIDTH 13.3 % (11.5-14.5)
[2024-05-30 11:27] LABS: URINE APPEARANCE Clear; URINE BILIRRUBIN Negative (NEGATIVE); URINE BLOOD Negative; URINE COLOR Yellow; URINE GLUCOSE Negative (NEGATIVE); URINE KETONE Negative (NEGATIVE); URINE LEUKOCYTE Negative; URINE NITRATE Negative; URINE PROTEIN Negative (NEGATIVE); URINE UROBILINOGEN 0.2 E.U./dl
[2024-05-30 11:29] LABS: URINE BACTERIA 8.8 uL (0.0-1933); URINE RBC 28.8 uL (0.0-20.8)
[2024-05-30 11:49] LABS: URINE EPITHELIAL CELLS 0.9 uL (0.0-38.8)
[2024-05-30 12:38] LABS: CALCIUM 9.7 mg/dL (8.5-10.1); CHOL HDL RATIO 3.9 (0-5.0); CREATININE SERUM 0.84 mg/dL (0.55-1.02); GFR 68.48; POTASSIUM 4.1 mEq/L (3.5-5.1); T4 TOTAL 9.72 UG/DL (4.8-13.9); TSH 0.366 uIU/mL (0.358-3.74)
[2024-05-30 12:44] LABS: MYCOPLASMA PNEUMONIAE IGM NON REACTIVE (NO REACTIVE)
== END 2024-05-30 08:40 | disposition home or self-care (01) ==
LOC: LAB 08:36
PROVIDERS: ATTEND Internal Medicine Cardiovascular Disease
DX: N39.0 Urinary tract infection, site not specified (principal); I10 Essential (primary) hypertension; E11.9 Type 2 diabetes mellitus without complications; E03.9 Hypothyroidism, unspecified; E78.2 Mixed hyperlipidemia; J11.1 Influenza due to unidentified influenza virus with other respiratory manifestations; A49.3 Mycoplasma infection, unspecified site; Z20.822 Contact with and (suspected) exposure to COVID-19

== ENCOUNTER 2024-08-02 08:00 | Outpatient (CLI) | payer OTHER ==
[2024-08-02 07:01] LABS: URINE APPEARANCE Clear; URINE BILIRRUBIN Negative (NEGATIVE); URINE BLOOD Negative; URINE COLOR Yellow; URINE GLUCOSE Negative (NEGATIVE); URINE KETONE Negative (NEGATIVE); URINE LEUKOCYTE Small; URINE NITRATE Negative; URINE PROTEIN Negative (NEGATIVE); URINE UROBILINOGEN 0.2 E.U./dl
[2024-08-02 07:06] LABS: URINE BACTERIA 36.5 uL (0.0-1933); URINE EPITHELIAL CELLS 20.8 uL (0.0-38.8); URINE RBC 7.4 uL (0.0-20.8)
[2024-08-02 07:13] LABS: HEMATOCRIT 41.4 % (36.0-45.00); HEMOGLOBIN 14.4 g/dL (12.0-15.00); MEAN CELL VOLUME 86.1 fL (80.00-100.00); MEAN CORPUSCULAR HEMOGLOBIN 29.9 pg (27.00-32.0); MEAN CORPUSCULAR HGB CONC 34.7 g/dl (32.0-36.0); PLATELET COUNT 155 K/uL (150-450); RED BLOOD COUNT 4.81 M/uL (4.00-6.00); RED CELL DISTRIBUTION WIDTH 13.3 % (11.5-14.5)
[2024-08-02 08:39] LABS: ALBUMIN 4.1 gm/dL (3.4-5.0); BILIRUBIN TOTAL 0.68 mg/dL (0.3-1.2); CALCIUM 9.1 mg/dL (8.5-10.1); CHOL HDL RATIO 3.8 (0-5.0); CREATININE SERUM 0.81 mg/dL (0.55-1.02); GFR 71.41; GLOBULINA 3.6 G/DL (2.4-3.5); POTASSIUM 3.9 mEq/L (3.5-5.1); T4 FREE 1.25 NG/ML (0.76-1.46); TOTAL PROTEIN 7.7 gm/dL (6.4-8.2)
[2024-08-02 08:46] LABS: TSH 0.274 uIU/mL (0.358-3.74)
== END 2024-08-02 08:01 | disposition home or self-care (01) ==
LOC: LAB 08:00
PROVIDERS: ATTEND Internal Medicine Sports Medicine
DX: E55.9 Vitamin D deficiency, unspecified (principal); D64.9 Anemia, unspecified; E11.9 Type 2 diabetes mellitus without complications; E78.2 Mixed hyperlipidemia; I10 Essential (primary) hypertension; E03.8 Other specified hypothyroidism

== ENCOUNTER 2024-08-02 13:18 | Outpatient (CLI) | payer OTHER | END 2024-08-02 13:23 | disposition home or self-care (01) | LOC: NUCLEAR 13:18 | PROVIDERS: ATTEND Internal Medicine Sports Medicine | DX: M85.88 Other specified disorders of bone density and structure, other site (principal); M81.0 Age-related osteoporosis without current pathological fracture ==

== ENCOUNTER 2024-09-06 14:00 | Outpatient (CLI) | payer OTHER | END 2024-09-06 14:10 | disposition home or self-care (01) | LOC: PPH VACUNA 14:00 | PROVIDERS: ATTEND Emergency Medicine Pediatric Emergency Medicine | DX: Z23 Encounter for immunization (principal) ==

== ENCOUNTER 2024-11-15 08:29 | Outpatient (CLI) | payer OTHER | END 2024-11-15 14:34 | disposition home or self-care (01) | LOC: MAMO-SONO 08:29 | PROVIDERS: ATTEND Internal Medicine Cardiovascular Disease | DX: N60.11 Diffuse cystic mastopathy of right breast (principal); N60.12 Diffuse cystic mastopathy of left breast; Z12.31 Encounter for screening mammogram for malignant neoplasm of breast ==

== ENCOUNTER 2024-11-17 06:33 | Outpatient (CLI) | payer OTHER ==
[2024-11-17 07:07] LABS: HEMATOCRIT 41.9 % (36.0-45.00); HEMOGLOBIN 14.4 g/dL (12.0-15.00); MEAN CELL VOLUME 86.3 fL (80.00-100.00); MEAN CORPUSCULAR HEMOGLOBIN 29.7 pg (27.00-32.0); MEAN CORPUSCULAR HGB CONC 34.4 g/dl (32.0-36.0); PLATELET COUNT 153 K/uL (150-450); RED BLOOD COUNT 4.86 M/uL (4.00-6.00); RED CELL DISTRIBUTION WIDTH 13.5 % (11.5-14.5)
[2024-11-17 07:45] LABS: PH,URINE 5.5 (5.0-8.0); URINE APPEARANCE Clear; URINE BILIRRUBIN Negative (NEGATIVE); URINE BLOOD Negative; URINE COLOR Yellow; URINE GLUCOSE Negative (NEGATIVE); URINE KETONE Negative (NEGATIVE); URINE LEUKOCYTE Negative; URINE NITRATE Negative; URINE PROTEIN Negative (NEGATIVE); URINE UROBILINOGEN 0.2 E.U./dl
[2024-11-17 07:48] LABS: URINE EPITHELIAL CELLS 4.2 uL (0.0-38.8); URINE RBC 2.2 uL (0.0-20.8); URINE WBC 3.6 uL (0.0-23.2)
[2024-11-17 08:05] LABS: BILIRUBIN TOTAL 0.7 mg/dL (0.3-1.2); CHOL HDL RATIO 3.8 (0-5.0); CREATININE SERUM 0.9 mg/dL (0.55-1.02); GFR 63.24; GLOBULINA 3.5 G/DL (2.4-3.5); POTASSIUM 3.92 mEq/L (3.5-5.1); T4 TOTAL 8.99 UG/DL (4.8-13.9); TOTAL PROTEIN 7.5 gm/dL (6.4-8.2); TSH 0.983 uIU/mL (0.358-3.74)
[2024-11-17 08:22] LABS: URINE CAST 0.14 uL (0.0-1.40)
[2024-11-17 11:17] LABS: T3 TOTAL 0.84 ng/ml (0.846-2.02); VITAMIN D3 25 HYDROXY 25.24 ng/ml (30-120)
== END 2024-11-17 06:34 | disposition home or self-care (01) ==
LOC: LAB 06:33
PROVIDERS: ATTEND Internal Medicine Cardiovascular Disease
DX: E11.9 Type 2 diabetes mellitus without complications (principal); I10 Essential (primary) hypertension; E03.9 Hypothyroidism, unspecified; E78.2 Mixed hyperlipidemia; E55.9 Vitamin D deficiency, unspecified; M81.0 Age-related osteoporosis without current pathological fracture; N39.0 Urinary tract infection, site not specified

== ENCOUNTER 2024-11-27 13:41 | Outpatient (CLI) | payer OTHER ==
[2024-11-29 08:07] LABS: HEPATITIS A ANTIBODY IGG Positive (Negative); HEPATITIS B CORE IGG Negative (Negative); HEPATITIS C VIRUS ANTIBODY Non Reactive (Non Reactive)
== END 2024-11-27 13:47 | disposition home or self-care (01) ==
LOC: LAB 13:41
DX: A64 Unspecified sexually transmitted disease (principal); B19.9 Unspecified viral hepatitis without hepatic coma

== ENCOUNTER → 2024-12-01 07:33 | Outpatient (CLI) | payer OTHER ==
[2024-12-01 07:31] LABS: HEMATOCRIT 40.6 % (36.0-45.00); HEMOGLOBIN 14.2 g/dL (12.0-15.00); MEAN CELL VOLUME 86.2 fL (80.00-100.00); MEAN CORPUSCULAR HEMOGLOBIN 30.2 pg (27.00-32.0); PLATELET COUNT 146 K/uL (150-450); RED CELL DISTRIBUTION WIDTH 13.8 % (11.5-14.5)
[2024-12-01 07:33] LABS: URINE APPEARANCE Clear; URINE BILIRRUBIN Negative (NEGATIVE); URINE BLOOD Negative; URINE COLOR Yellow; URINE GLUCOSE Negative (NEGATIVE); URINE KETONE Negative (NEGATIVE); URINE LEUKOCYTE Small; URINE NITRATE Negative; URINE PROTEIN Negative (NEGATIVE); URINE UROBILINOGEN 0.2 E.U./dl
[2024-12-01 07:36] LABS: URINE BACTERIA 63.6 uL (0.0-1933); URINE EPITHELIAL CELLS 22.4 uL (0.0-38.8); URINE RBC 8.1 uL (0.0-20.8); URINE WBC 18.6 uL (0.0-23.2)
[2024-12-01 07:50] LABS: URINE CAST 0.14 uL (0.0-1.40)
[2024-12-01 08:54] LABS: ALBUMIN 3.8 gm/dL (3.4-5.0); BILIRUBIN TOTAL 0.92 mg/dL (0.3-1.2); CALCIUM 9.3 mg/dL (8.5-10.1); CHOL HDL RATIO 3.2 (0-5.0); CREATININE SERUM 0.87 mg/dL (0.55-1.02); GFR 65.76; GLOBULINA 3.5 G/DL (2.4-3.5); POTASSIUM 4.09 mEq/L (3.5-5.1); TOTAL PROTEIN 7.3 gm/dL (6.4-8.2)
[2024-12-01 09:06] LABS: TSH 0.298 uIU/mL (0.358-3.74)
== END | disposition home or self-care (01) ==
LOC: LAB 07:33
PROVIDERS: ATTEND Internal Medicine
DX: D64.9 Anemia, unspecified (principal); N39.0 Urinary tract infection, site not specified; R10.9 Unspecified abdominal pain; E03.9 Hypothyroidism, unspecified; E78.5 Hyperlipidemia, unspecified; R07.9 Chest pain, unspecified; R80.9 Proteinuria, unspecified; E11.9 Type 2 diabetes mellitus without complications

== ENCOUNTER 2024-12-19 06:04 | Outpatient (CLI) | payer OTHER | END 2024-12-19 06:26 | disposition home or self-care (01) | LOC: LAB 06:04 | PROVIDERS: ATTEND Internal Medicine Sports Medicine | DX: C73 Malignant neoplasm of thyroid gland (principal); E89.0 Postprocedural hypothyroidism ==

== ENCOUNTER 2024-12-20 08:08 | Outpatient (CLI) | payer OTHER | END 2024-12-20 08:12 | disposition home or self-care (01) | LOC: SONOGRAMA 08:08 | PROVIDERS: ATTEND Internal Medicine Sports Medicine | DX: C73 Malignant neoplasm of thyroid gland (principal) ==

== ENCOUNTER → 2025-01-16 07:41 | Outpatient (CLI) | payer OTHER | END | disposition home or self-care (01) | LOC: NUCLEAR 07:41 | PROVIDERS: ATTEND Internal Medicine | DX: R00.2 Palpitations (principal) ==

== ENCOUNTER → 2025-03-02 07:07 | Outpatient (CLI) | payer OTHER ==
[2025-03-02 07:11] LABS: URINE APPEARANCE Clear; URINE BILIRRUBIN Negative (NEGATIVE); URINE BLOOD Trace; URINE COLOR Yellow; URINE GLUCOSE Negative (NEGATIVE); URINE KETONE Negative (NEGATIVE); URINE LEUKOCYTE Trace; URINE NITRATE Negative; URINE PROTEIN Negative (NEGATIVE); URINE UROBILINOGEN 0.2 E.U./dl
[2025-03-02 07:12] LABS: URINE BACTERIA 28.1 uL (0.0-1933); URINE EPITHELIAL CELLS 7.9 uL (0.0-38.8); URINE RBC 3.5 uL (0.0-20.8); URINE WBC 8.3 uL (0.0-23.2)
[2025-03-02 07:28] LABS: URINE CAST 0.29 uL (0.0-1.40)
[2025-03-02 07:40] LABS: HEMATOCRIT 42.8 % (36.0-45.00); HEMOGLOBIN 14.5 g/dL (12.0-15.00); MEAN CELL VOLUME 86.8 fL (80.00-100.00); MEAN CORPUSCULAR HEMOGLOBIN 29.4 pg (27.00-32.0); MEAN CORPUSCULAR HGB CONC 33.9 g/dl (32.0-36.0); PLATELET COUNT 161 K/uL (150-450); RED BLOOD COUNT 4.93 M/uL (4.00-6.00); RED CELL DISTRIBUTION WIDTH 13.4 % (11.5-14.5)
[2025-03-02 08:11] LABS: BILIRUBIN TOTAL 0.67 mg/dL (0.3-1.2); CALCIUM 9.3 mg/dL (8.5-10.1); CHOL HDL RATIO 4.3 (0-5.0); CREATININE SERUM 0.82 mg/dL (0.55-1.02); GFR 70.41; GLOBULINA 3.6 G/DL (2.4-3.5); POTASSIUM 4.62 mEq/L (3.5-5.1); T4 FREE 1.1 NG/ML (0.76-1.46); TOTAL PROTEIN 7.6 gm/dL (6.4-8.2); TSH 1.72 uIU/mL (0.358-3.74)
== END | disposition home or self-care (01) ==
LOC: LAB 03-01 08:17
PROVIDERS: ATTEND Internal Medicine Sports Medicine
DX: D64.9 Anemia, unspecified (principal); E11.9 Type 2 diabetes mellitus without complications; E78.2 Mixed hyperlipidemia; I10 Essential (primary) hypertension; E03.8 Other specified hypothyroidism; E55.9 Vitamin D deficiency, unspecified

== ENCOUNTER 2025-05-18 12:02 | Outpatient (CLI) | payer OTHER | END 2025-05-18 12:12 | disposition home or self-care (01) | LOC: RAD 12:02 | PROVIDERS: ATTEND Internal Medicine Cardiovascular Disease | DX: M12.9 Arthropathy, unspecified (principal); M46.47 Discitis, unspecified, lumbosacral region ==

== ENCOUNTER 2025-06-02 14:53 | Outpatient (CLI) | payer OTHER ==
[2025-06-02 09:35] LABS: BASO % 0.8 % (0.1-1.2); EOS # 0.14 (0.04-0.54); EOS % 2.7 % (0.7-7.0); LYMPH # 1.95 (1.18-3.74); LYMPH % 37.1 % (19.3-53.1); MEAN PLATELET VOLUME 11.70 fl (9.4-12.4); MONO # 0.31 (0.24-0.82); MONO % 5.9 % (4.7-12.5); NEUT # 2.79 (1.56-6.13); NEUT % 53.1 % (34.0-71.1); RED CELL DISTRIBUTION WIDTH 12.8 % (11.6-14.4)
[2025-06-02 09:56] LABS: URINE APPEARANCE Clear; URINE BILIRRUBIN Negative (NEGATIVE); URINE BLOOD Negative; URINE COLOR Yellow; URINE GLUCOSE Negative (NEGATIVE); URINE KETONE Trace (NEGATIVE); URINE LEUKOCYTE Trace; URINE NITRATE Negative; URINE PROTEIN Negative (NEGATIVE); URINE UROBILINOGEN 0.2 E.U./dl
[2025-06-02 10:01] LABS: URINE BACTERIA 203.9 uL (0.0-1933); URINE EPITHELIAL CELLS 38.1 uL (0.0-38.8); URINE RBC 9.8 uL (0.0-20.8); URINE WBC 21.8 uL (0.0-23.2)
[2025-06-02 10:07] LABS: URINE CAST 0.00 uL (0.0-1.40)
[2025-06-02 10:46] LABS: ALT/SGPT 21 U/L (12-78); AST/SGOT 16 U/L (15-37); BILIRUBIN TOTAL 0.68 mg/dL (0.3-1.2); BUN CREA RATIO 22 (7.0-25.0); CHOL HDL RATIO 3.9 (0-5.0); CREATININE SERUM 0.88 mg/dL (0.55-1.02); GFR 64.69; GLOBULINA 3.5 G/DL (2.4-3.5); GLUCOSE FASTING 85 mg/dL (65-100); HDL 55 mg/dl (40-60); LDL 137 mg/dl (0-130); OSMOLALITY SERUM 286 MOSM/KG (275-295); VLDL 24 (0-39)
[2025-06-02 11:00] LABS: TSH 7.400 uIU/mL (0.358-3.74)
== END 2025-06-02 14:54 | disposition home or self-care (01) ==
LOC: LAB 14:53
DX: D64.9 Anemia, unspecified (principal); N39.0 Urinary tract infection, site not specified; R10.9 Unspecified abdominal pain; E03.9 Hypothyroidism, unspecified; E78.5 Hyperlipidemia, unspecified; E07.9 Disorder of thyroid, unspecified; I10 Essential (primary) hypertension

== ENCOUNTER 2025-06-19 06:32 | Outpatient (CLI) | payer OTHER ==
[2025-06-19 07:05] LABS: BASO % 0.6 % (0.1-1.2); EOS # 0.14 (0.04-0.54); EOS % 2.0 % (0.7-7.0); LYMPH # 1.98 (1.18-3.74); LYMPH % 28.9 % (19.3-53.1); MEAN PLATELET VOLUME 11.80 fl (9.4-12.4); MONO # 0.51 (0.24-0.82); MONO % 7.4 % (4.7-12.5); NEUT # 4.18 (1.56-6.13); NEUT % 61.0 % (34.0-71.1); RED CELL DISTRIBUTION WIDTH 12.5 % (11.6-14.4)
[2025-06-19 07:16] LABS: URINE APPEARANCE Clear; URINE BILIRRUBIN Negative (NEGATIVE); URINE BLOOD Trace; URINE COLOR Yellow; URINE GLUCOSE Negative (NEGATIVE); URINE KETONE Negative (NEGATIVE); URINE LEUKOCYTE Negative; URINE NITRATE Negative; URINE PROTEIN Negative (NEGATIVE); URINE UROBILINOGEN 0.2 E.U./dl
[2025-06-19 07:18] LABS: URINE BACTERIA 10.7 uL (0.0-1933); URINE EPITHELIAL CELLS 1.6 uL (0.0-38.8); URINE RBC 9.3 uL (0.0-20.8); URINE WBC 2.4 uL (0.0-23.2)
[2025-06-19 07:42] LABS: URINE CAST 0.00 uL (0.0-1.40)
[2025-06-19 08:31] LABS: BUN CREA RATIO 18.0 (7.0-25.0); CREATININE SERUM 0.91 mg/dL (0.55-1.02); GFR 62.24; GLUCOSE FASTING 88.0 mg/dL (65-100); OSMOLALITY SERUM 286.0 MOSM/KG (275-295)
[2025-06-19 08:32] LABS: ALT/SGPT 18.0 U/L (12-78); AST/SGOT 13.0 U/L (15-37); BILIRUBIN TOTAL 0.63 mg/dL (0.3-1.2); CHOL HDL RATIO 4.3 (0-5.0); GLOBULINA 3.9 G/DL (2.4-3.5); HDL 46.0 mg/dl (40-60); LDL 117.0 mg/dl (0-130); T4 TOTAL 7.96 UG/DL (4.8-13.9); TSH 3.03 uIU/mL (0.358-3.74); VLDL 32.0 (0-39)
== END 2025-06-19 06:33 | disposition home or self-care (01) ==
LOC: LAB 06:32
PROVIDERS: ATTEND Internal Medicine Cardiovascular Disease
DX: I10 Essential (primary) hypertension (principal); E11.9 Type 2 diabetes mellitus without complications; E03.9 Hypothyroidism, unspecified; E78.2 Mixed hyperlipidemia

== ENCOUNTER 2025-08-31 08:22 | Outpatient (CLI) | payer OTHER ==
[2025-08-31 09:22] LABS: BASO % 0.6 % (0.1-1.2); EOS # 0.09 (0.04-0.54); EOS % 1.8 % (0.7-7.0); LYMPH # 1.70 (1.18-3.74); LYMPH % 33.5 % (19.3-53.1); MEAN PLATELET VOLUME 12.10 fl (9.4-12.4); MONO # 0.27 (0.24-0.82); MONO % 5.3 % (4.7-12.5); NEUT # 2.97 (1.56-6.13); NEUT % 58.6 % (34.0-71.1); RED CELL DISTRIBUTION WIDTH 12.7 % (11.6-14.4)
[2025-08-31 09:32] LABS: ERYTHROCYTE SEDIMENTATION RATE 9 mm/hr (0-30)
[2025-08-31 10:32] LABS: ALT/SGPT 23 U/L (12-78); AST/SGOT 13 U/L (15-37); BILIRUBIN TOTAL 0.61 mg/dL (0.3-1.2); BUN CREA RATIO 24 (7.0-25.0); CREATININE SERUM 0.84 mg/dL (0.55-1.02); GFR 68.26; GLOBULINA 3.5 G/DL (2.4-3.5); GLUCOSE FASTING 89 mg/dL (65-100); OSMOLALITY SERUM 281 MOSM/KG (275-295); T4 FREE 1.13 NG/ML (0.76-1.46); TSH 0.812 uIU/mL (0.358-3.74)
[2025-09-01 09:07] LABS: HOMOCYSTEINE 12.5 umol/L (0.0-17.2); PROLACTIN 8.1 ng/mL (3.6-25.2)
== END 2025-08-31 15:46 | disposition home or self-care (01) ==
LOC: LAB 08:22
DX: R42 Dizziness and giddiness (principal); R51.9 Headache, unspecified; D64.9 Anemia, unspecified; M06.9 Rheumatoid arthritis, unspecified; E03.9 Hypothyroidism, unspecified; E72.11 Homocystinuria; M62.9 Disorder of muscle, unspecified; G62.9 Polyneuropathy, unspecified; R20.2 Paresthesia of skin; R73.9 Hyperglycemia, unspecified; R73.01 Impaired fasting glucose; E22.1 Hyperprolactinemia

== ENCOUNTER 2025-09-05 08:08 | Outpatient (CLI) | payer OTHER | END 2025-09-05 08:10 | disposition home or self-care (01) | LOC: MRI 08:08 | DX: R42 Dizziness and giddiness (principal); H93.3X9 Disorders of unspecified acoustic nerve | CPT/HCPCS: 70553 ==